=== PATIENT | male | born 2000 | race Caucasian/White ===

== ENCOUNTER 2023-11-14 05:09 | Emergency (ER) | payer BC, SELFPAY ==
[2023-11-14] VITALS (8 sets, daily range): BP systolic 111–140; BP diastolic 70–90; PULSE 50–73; RESP 16–20; TEMP 36.7–37.2; O2SAT 93–100; BMI 35.4
--- NOTE | 2023-11-14 05:25 | CT_ITS ---
FINAL REPORT TECHNIQUE: After the administration of intravenous contrast, axial images were obtained through the abdomen and pelvis by computed tomography. This study was performed with technique to keep radiation doses as low as reasonably achievable, (ALARA). Individualized dose reduction techniques using automated exposure control or adjustment of the MA and/or KV according to the patient's size were employed. CLINICAL HISTORY: RUQ/ R back pain FINDINGS: Abdomen: The lung bases are clear. There is diffuse fatty infiltration of the liver. Spleen is enlarged up to 16 cm in craniocaudad dimension. There are multiple gallstones present. The spleen is unremarkable. The adrenals are normal. The pancreas is unremarkable. The kidneys enhance appropriately. The aorta is normal in caliber. There is no free fluid or adenopathy. Pelvis: The appendix is normal. The urinary bladder is incompletely distended. There is no free fluid or adenopathy. IMPRESSION: Cholelithiasis. Fatty infiltration of the liver with splenomegaly. Reviewed, Interpreted and Dictated by Salazar Benitez MD Transcribed by Obdulia Erwin Authenticated and [facility]
--- NOTE | 2023-11-14 05:26 | ED_ITS ---
Discharge Plan Disposition Patient Disposition: Home, Self-Care Prescriptions Prescriptions: New ondansetron 4 mg tablet,disintegrating 4 mg PO Q8H PRN (Reason: nausea and vomiting) 4 Days Qty: 12 0RF Referrals Follow up/Referrals: Provider,Referral, [Primary Care Provider] - See instructions Activity Restrictions/Add. Instructions Additional Instructions/Restrictions: At this time it was felt you are safe to be discharged home. If new or worsening symptoms please do not hesitate to return the emergency department. Please take your medications as prescribed. For pain please take Tylenol and Profen every 6 hours with little bit of food. Please avoid greasy food as this will cause your gallbladder pain to be worse. Please call and schedule appointment as soon as you are able with Dr. Ya to see if her gallbladder needs to be removed. Clinical Impressions Clinical Impression: Symptomatic cholelithiasis Instructions Patient Instructions: DI for Acute Abdominal Pain Print Language Print Language: Wallisian Discharge ED Provider: Mp Suero General Adult HPI <Anatoliy Ferreira MD - Last Filed: 11/14/23 06:51> General Chief complaint: Abdominal Pain Stated complaint: back, abd pain, vomiting Time Seen by Provider: 11/14/23 05:15 History of Present Illness HPI narrative: 23-year-old male without significant past medical history presents for right- sided abdominal and back pain. He reports symptoms started last few hours. He has had this happen once before but it went away on its own. He reports some nausea and 2 episodes of vomiting. He did not take anything for pain prior to coming besides some Tiffany-Newman. Reports no fever at home, denies surgical history. Reports pain is worse in the lower abdomen currently. Related Data Previous Rx's ?Medication ?Instructions ?Recorded ondansetron 4 mg disintegrating 4 mg PO Q8H PRN nausea and 11/14/23 tablet vomiting 4 days #12 tabs Allergies Allergy/AdvReac Type Severity Reaction Status Date / Time No Known Allergies Allergy Verified 11/14/23 05:28 PFS <Anatoliy Ferreira MD - Last Filed: 11/14/23 06:51> [facility] Disclaimer: The information contained in this section may have been updated after the patient was seen, as this information can be updated by other users. Social History (Updated 11/14/23 @ 06:51 by Anatoliy Ferreira MD) Smoking Status: Current every day smoker alcohol intake: never current occupational status: other Travel in the last 8 weeks: None <Anatoliy Ferreira MD - Last Filed: 11/14/23 06:51> ROS Obtained: Yes All systems reviewed & no additional complaints except as documented Physical Exam <Anatoliy Ferreira MD - Last Filed: 11/14/23 06:51> General General appearance: alert and in no apparent distress Head Head exam: atraumatic and normocephalic Eye Eye exam: Present normal appearance, PERRL and EOMI ENT ENT exam: Present normal oropharynx and normal external ear exam Neck Neck exam: Present normal inspection and full ROM Chest Chest inspection: Present normal inspection and symmetric chest wall rise; Absent tenderness Respiratory Respiratory exam: Present normal lung sounds bilaterally; Absent respiratory distress Cardiovascular Cardiovascular exam: Present regular rate and normal rhythm Abdominal Exam Abdominal exam: Present soft and tenderness (ruq); Absent distention or guarding Extremities Exam Extremities exam: Present normal inspection; Absent edema or joint swelling Back Exam Back exam: Present normal inspection; Absent tenderness Neurological Exam Neurological exam: Present alert and oriented X3; Absent motor sensory deficit Psychiatric Psychiatric exam: Present normal affect and normal mood Skin Skin exam: Present warm, dry and normal color Lymphatic Lymphatic Findings: no adenopathy Medical Decision Making <Anatoliy Ferreira MD - Last Filed: 11/14/23 06:51> Medical Records Medical records reviewed: Yes I reviewed the patient's medical records. Screening: Per USPSTF and CDC recommendations, given the prevalence of disease in our region, it is our hospital?s policy to screen for HIV and viral Hepatitis for all patients aged 18 and over and those with ongoing risk factors. Asif Inquiry Pt receiving controlled substance: No Asif was queried for this patient: No Vital Signs: 11/14/23 05:11 11/14/23 07:00 11/14/23 07:30 Temperature 98.9 F Temperature Source Oral Pulse Rate 50 L 73 Pulse Rate [Left Radial] 67 Respiratory Rate 20 Blood Pressure 140/87 128/75 Blood Pressure [Right Arm] 125/90 Blood Pressure Mean 99 Blood Pressure Mean [Right Arm] 101 Blood Pressure Source [Right Arm] Automatic Cuff Blood Pressure Position [Right Arm] Sitting 02 Sat by Pulse Oximetry 99 93 L 100 Oxygen Delivery Method Room Air Room Air Room Air 11/14/23 08:07 11/14/23 08:31 11/14/23 09:01 Temperature Temperature Source Pulse Rate 60 59 L 51 L Pulse Rate [Left Radial] Respiratory Rate 16 Blood Pressure 129/81 122/80 111/77 Blood Pressure [Right Arm] Blood Pressure Mean 95 Blood Pressure Mean [Right Arm] Blood Pressure Source [Right Arm] Blood Pressure Position [Right Arm] 02 Sat by Pulse Oximetry 98 97 93 L Oxygen Delivery Method Room Air Room Air 11/14/23 09:31 Temperature Temperature Source Pulse Rate 51 L Pulse Rate [Left Radial] Respiratory Rate Blood Pressure 116/70 Blood Pressure [Right Arm] Blood Pressure Mean Blood Pressure Mean [Right Arm] Blood Pressure Source [Right Arm] Blood Pressure Position [Right Arm] 02 Sat by Pulse Oximetry 97 Oxygen Delivery Method Room Air Lab Data Lab results reviewed: Yes I reviewed the patient's lab results. Lab Results 11/14/23 05:20: WBC 11.4 H, RBC 5.16, Hgb 16.3, Hct 48.7, MCV 94.4 H, MCH 31.7 H , MCHC 33.5, RDW 13.8, Plt Count 257, MPV 6.9 L, Neut % (Auto) 79.9, Lymph % (Auto) 14.2, [place] % (Auto) 4.5, Eos % (Auto) 1.0, Baso % (Auto) 0.5, Neut # (Auto) 9.1 H, Lymph # (Auto) 1.6, [place] # (Auto) 0.5, Eos # (Auto) 0.1, Baso # (Auto) 0.1, Sodium 138, Potassium 3.6, Chloride 104, Carbon Dioxide 28, Anion Gap 9.6, BUN 16, Creatinine 0.90, Estimated Creat Clear 197, Estimated GFR 105, Est GFR ( Amer) 127, Glucose 152 H, Calcium 9.0, Total Bilirubin 1.3, AST 48, ALT 85 H, Alkaline Phosphatase 77, Total Protein 7.2, Albumin 4.7, Globulin 2.5, Albumin/Globulin Ratio 1.9 H, Lipase 68 11/14/23 06:15: Urine Color Yellow, Urine Appearance Clear, Urine pH 6.0, Ur Specific [place] >= 1.030, Urine Protein Trace, Urine Glucose (UA) Negative, Urine Ketones Trace, Urine Blood Negative, Urine Nitrate Negative, Urine Bilirubin Negative, Urine Urobilinogen 2.0, Ur Leukocyte Esterase Negative, Urine RBC None, Urine WBC None, Ur Squamous Epith Cells None, Urine Bacteria None 11/14/23 05:20 11/14/23 05:20 Orders (Tests/Meds): ED MEDICATIONS Generic Name Dose Route Start Last Admin Trade Name Freq PRN Reason Stop Dose Admin Sodium Chloride 10 ml 11/14/23 06:06 11/14/23 06:07 Sodium Chloride 0.9% 10ml Syr (Rad Only) IV 12/14/23 06:05 10 ml NEEDED PRN Administration Maintain IV Site Discontinued Medications Generic Name Dose Route Start Last Admin Trade Name Freq PRN Reason Stop Dose Admin Acetaminophen 1,000 mg 11/14/23 05:25 11/14/23 05:30 Acetaminophen 500mg Tab PO 11/14/23 05:26 1,000 mg ONCE ONE Administration Iopamidol 75 ml 11/14/23 06:06 11/14/23 06:07 Iopamidol-370 (76%);100ml Bottle IV 11/14/23 06:07 75 ml ONCE ONE Administration Ketorolac Tromethamine 30 mg 11/14/23 05:25 11/14/23 05:31 Ketorolac 30mg/Ml Vial IV 11/14/23 05:26 30 mg ONCE ONE Administration Ondansetron HCl 4 mg 11/14/23 05:25 11/14/23 05:31 Ondansetron 4mg/2ml Vial IV 11/14/23 05:26 4 mg ONCE ONE Administration ORDERS Category Date Time Status CT abdomen pelvis w con Stat Cat Scan 11/14/23 05:25 Completed POCUS Point of Care (ER Only) Stat Exams 11/14/23 06:14 Completed US RUQ [US abdomen limited] Stat Exams 11/14/23 06:46 Completed CBC w/Auto Diff [Complete Blood Count Auto Diff] Stat Lab 11/14/23 05:20 Completed CMP [Comprehensive Metabolic Panel] Stat Lab 11/14/23 05:20 Completed Lipase Stat Lab 11/14/23 05:20 Completed UA [Urinalysis and Microscopic] Stat Lab 11/14/23 06:15 Completed Medical Decision Narrative: 23-year-old male without significant past medical history presents for right sided abdominal pain and right-sided back pain for few hours.. History was obtained via interactive discussion with patient. On arrival, patient is [afebrile, hemodynamically stable, satting appropriately, alert, oriented x4, GCS 15], moving all extremities spontaneously. Full physical exam performed and significant for right-sided abdominal tenderness. Bedside ultrasound of the right upper quadrant was attempted but was nondiagnostic due to body habitus. Differential includes but is not limited to cholecystitis, UTI, pyelonephritis, kidney stone, pancreatitis, gastroenteritis, musculoskeletal pain. Patient was given Tylenol Toradol Zofran for symptomatic management and correction of underlying abnormalities. Workup initiated including CBC CMP lipase UA CT abdomen and pelvis with IV contrast. On re-evaluation, patient [remains afebrile, HD stable.] Laboratory workup independently interpreted by me and significant for mildly elevated AST, mild leukocytosis, urine without evidence of infection Care handed off to oncoming physician pending CT and right upper quadrant ultrasound results. <Mp Suero MD - Last Filed: 11/14/23 10:04> Vital Signs: 11/14/23 05:11 11/14/23 07:00 11/14/23 07:30 Temperature 98.9 F Temperature Source Oral Pulse Rate 50 L 73 Pulse Rate [Left Radial] 67 Respiratory Rate 20 Blood Pressure 140/87 128/75 Blood Pressure [Right Arm] 125/90 Blood Pressure Mean 99 Blood Pressure Mean [Right Arm] 101 Blood Pressure Source [Right Arm] Automatic Cuff Blood Pressure Position [Right Arm] Sitting 02 Sat by Pulse Oximetry 99 93 L 100 Oxygen Delivery Method Room Air Room Air Room Air 11/14/23 08:07 11/14/23 08:31 11/14/23 09:01 Temperature Temperature Source Pulse Rate 60 59 L 51 L Pulse Rate [Left Radial] Respiratory Rate 16 Blood Pressure 129/81 122/80 111/77 Blood Pressure [Right Arm] Blood Pressure Mean 95 Blood Pressure Mean [Right Arm] Blood Pressure Source [Right Arm] Blood Pressure Position [Right Arm] 02 Sat by Pulse Oximetry 98 97 93 L Oxygen Delivery Method Room Air Room Air 11/14/23 09:31 Temperature Temperature Source Pulse Rate 51 L Pulse Rate [Left Radial] Respiratory Rate Blood Pressure 116/70 Blood Pressure [Right Arm] Blood Pressure Mean Blood Pressure Mean [Right Arm] Blood Pressure Source [Right Arm] Blood Pressure Position [Right Arm] 02 Sat by Pulse Oximetry 97 Oxygen Delivery Method Room Air Lab Data Lab Results 11/14/23 05:20: WBC 11.4 H, RBC 5.16, Hgb 16.3, Hct 48.7, MCV 94.4 H, MCH 31.7 H , MCHC 33.5, RDW 13.8, Plt Count 257, MPV 6.9 L, Neut % (Auto) 79.9, Lymph % (Auto) 14.2, [place] % (Auto) 4.5, Eos % (Auto) 1.0, Baso % (Auto) 0.5, Neut # (Auto) 9.1 H, Lymph # (Auto) 1.6, [place] # (Auto) 0.5, Eos # (Auto) 0.1, Baso # (Auto) 0.1, Sodium 138, Potassium 3.6, Chloride 104, Carbon Dioxide 28, Anion Gap 9.6, BUN 16, Creatinine 0.90, Estimated Creat Clear 197, Estimated GFR 105, Est GFR ( Amer) 127, Glucose 152 H, Calcium 9.0, Total Bilirubin 1.3, AST 48, ALT 85 H, Alkaline Phosphatase 77, Total Protein 7.2, Albumin 4.7, Globulin 2.5, Albumin/Globulin Ratio 1.9 H, Lipase 68 11/14/23 06:15: Urine Color Yellow, Urine Appearance Clear, Urine pH 6.0, Ur Specific [place] >= 1.030, Urine Protein Trace, Urine Glucose (UA) Negative, Urine Ketones Trace, Urine Blood Negative, Urine Nitrate Negative, Urine Bilirubin Negative, Urine Urobilinogen 2.0, Ur Leukocyte Esterase Negative, Urine RBC None, Urine WBC None, Ur Squamous Epith Cells None, Urine Bacteria None Orders (Tests/Meds): ED MEDICATIONS Generic Name Dose Route Start Last Admin Trade Name Freq PRN Reason Stop Dose Admin Sodium Chloride 10 ml 11/14/23 06:06 11/14/23 06:07 Sodium Chloride 0.9% 10ml Syr (Rad Only) IV 12/14/23 06:05 10 ml NEEDED PRN Administration Maintain IV Site Discontinued Medications Generic Name Dose Route Start Last Admin Trade Name Freq PRN Reason Stop Dose Admin Acetaminophen 1,000 mg 11/14/23 05:25 11/14/23 05:30 Acetaminophen 500mg Tab PO 11/14/23 05:26 1,000 mg ONCE ONE Administration Iopamidol 75 ml 11/14/23 06:06 11/14/23 06:07 Iopamidol-370 (76%);100ml Bottle IV 11/14/23 06:07 75 ml ONCE ONE Administration Ketorolac Tromethamine 30 mg 11/14/23 05:25 11/14/23 05:31 Ketorolac 30mg/Ml Vial IV 11/14/23 05:26 30 mg ONCE ONE Administration Ondansetron HCl 4 mg 11/14/23 05:25 11/14/23 05:31 Ondansetron 4mg/2ml Vial IV 11/14/23 05:26 4 mg ONCE ONE Administration ORDERS Category Date Time Status CT abdomen pelvis w con Stat Cat Scan 11/14/23 05:25 Completed POCUS Point of Care (ER Only) Stat Exams 11/14/23 06:14 Completed US RUQ [US abdomen limited] Stat Exams 11/14/23 06:46 Completed CBC w/Auto Diff [Complete Blood Count Auto Diff] Stat Lab 11/14/23 05:20 Completed CMP [Comprehensive Metabolic Panel] Stat Lab 11/14/23 05:20 Completed Lipase Stat Lab 11/14/23 05:20 Completed UA [Urinalysis and Microscopic] Stat Lab 11/14/23 06:15 Completed Medical Decision Narrative: 23-year-old male without significant past medical history presents for right sided abdominal pain and right-sided back pain for few hours.. History was obtained via interactive discussion with patient. On arrival, patient is [afebrile, hemodynamically stable, satting appropriately, alert, oriented x4, GCS 15], moving all extremities spontaneously. Full physical exam performed and significant for right-sided abdominal tenderness. Bedside ultrasound of the right upper quadrant was attempted but was nondiagnostic due to body habitus. Differential includes but is not limited to cholecystitis, UTI, pyelonephritis, kidney stone, pancreatitis, gastroenteritis, musculoskeletal pain. Patient was given Tylenol Toradol Zofran for symptomatic management and correction of underlying abnormalities. Workup initiated including CBC CMP lipase UA CT abdomen and pelvis with IV contrast. On re-evaluation, patient [remains afebrile, HD stable.] Laboratory workup independently interpreted by me and significant for mildly elevated AST, mild leukocytosis, urine without evidence of infection Care handed off to oncoming physician pending CT and right upper quadrant ultrasound results. Mp Suero: Upon assumption of care patient was hemodynamically stable. Workup reviewed by me, hematologic labs are nonactionable, white blood cell count 11.4, no STARR or critical electrolyte abnormality, no elevated lipase or bilirubin. Urinalysis interpreted by me and not consistent with infection. CT imaging informally visualized by me, it appears there are stones in the gallbladder, it is difficult to appreciate whether or not there is thickening or ductal dilatation. Formal read shows cholelithiasis. Ultrasound corroborates this without evidence of thickening to suggest acute cholecystitis. Given this patient has symptomatic cholelithiasis given the quality of his pain as well as location and underwent p.o. trial with successful is appropriate for outpatient management at this time we will follow-up with surgery. Procedures <Anatoliy Ferreira MD - Last Filed: 11/14/23 06:51> Risk/Benefits of Procedure(s) Were Explained: Yes Critical Care <Anatoliy Ferreira MD - Last Filed: 11/14/23 06:51> Critical Care Time Critical Care Time: No
[2023-11-14 05:30] LABS: Basophils # 0.1 K/mm3 (0-0.2); Basophils % 0.5 % (0.1-2.0); Eosinophils # 0.1 K/mm3 (0.0-0.4); Hematocrit 48.7 % (42.0-52.0); Hemoglobin 16.3 g/dL (14.1-18.0); Lymphocytes # 1.6 K/mm3 (0.7-4.5); Lymphocytes % 14.2 % (10-50); Mean Corpuscular HGB Conc 33.5 g/dL (31.8-35.4); Mean Corpuscular Hemoglobin 31.7 pg (27.0-31.2); Mean Corpuscular Volume 94.4 fl (80-94); Mean Platelet Volume 6.9 fl (7.4-10.4); Monocytes # 0.5 K/mm3 (0.1-1.0); Monocytes % 4.5 % (1.7-9.3); Neutrophils # 9.1 K/mm3 (1.8-7.8); Neutrophils % 79.9 % (37.0-80.0); Platelet Count 257 K/mm3 (142-424); Red Blood Count 5.16 M/mm3 (4.60-6.20); Red Cell Distribution Width 13.8 % (11.5-17.5); White Blood Count 11.4 K/mm3 (4.8-10.8)
[2023-11-14] MEDS: ACETAMINOPHEN 500MG TAB 1000 MG PO (05:30)
[2023-11-14] MEDS: ONDANSETRON 4MG/2ML VIAL 4 MG IV (05:31)
[2023-11-14] MEDS: KETOROLAC 30MG/ML VIAL 30 MG IV (05:31)
[2023-11-14 05:36] LABS: Albumin Level 4.7 g/dl (3.5-5.0); Chloride 104 mmol/L (98-107); Potassium 3.6 mmoL/L (3.5-5.1); Sodium 138 mmol/L (136-145)
[2023-11-14 05:38] LABS: Alanine Aminotransferase 85 U/L (12-78); Aspartate Amino Transferase 48 U/L (17-59); Bilirubin,Total 1.3 mg/dl (0.2-1.3); Blood Urea Nitrogen 16 mg/dl (9-20); Creatinine Clearance Estimated 197 mL/min (50-200); Estimated Glomerular Filt Rate 105 ml/min (>60); GFR (African American) 127 ML/MIN (>60)
[2023-11-14 05:39] LABS: Albumin/Globulin Ratio 1.9 (1.1-1.8); Alkaline Phosphatase 77 U/L (38-126); Anion Gap 9.6 mEq/L (5-15); Carbon Dioxide 28 mmol/L (22.0-30.0); Globulin 2.5 g/dL (1.3-3.2); Glucose 152 mg/dl (74-100); Lipase 68 U/L (23-300); Total Protein,Serum 7.2 g/dl (6.3-8.2)
--- NOTE | 2023-11-14 05:49 | PC.NURSE ---
pt to CT at this time
[2023-11-14] MEDS: IOPAMIDOL-370 (76%);100ML BOTTLE 75 ML IV (06:07)
[2023-11-14] MEDS: SODIUM CHLORIDE 0.9% 10ML SYR (RAD ONLY) 10 ML IV (06:07)
--- NOTE | 2023-11-14 06:16 | PC.NURSE ---
urine collected and sent to lab
[2023-11-14 06:18] LABS: Microscopic, Urine URINE MICROSCOPIC (MICROSCOPIC)
[2023-11-14 06:20] LABS: Appearance,Urine CLEAR (Clear); Bilirubin,Urine Negative (Negative); Blood, Urine Negative (Negative); Color,Urine YELLOW (Yellow); Glucose,Urine (UA) Negative (Negative); Ketones,Urine TRACE (Negative); Leukocyte Esterase,Urine Negative (Negative); Nitrate,Urine Negative (Negative); Protein,Urine TRACE (Negative); Specific Gravity, Urine >= 1.030 (1.005-1.030)
--- NOTE | 2023-11-14 06:46 | US_ITS ---
FINAL REPORT CLINICAL HISTORY: R abd pain COMPARISON: None FINDINGS: Sonographic images of the right upper quadrant were obtained. The pancreas is partially obscured. There is fatty infiltration of the liver. There is a multitude of gallstones noted in the gallbladder. There is no significant gallbladder wall thickening. There is no evidence of biliary ductal dilatation.The common duct measures 3 mm. Limited images of the right kidney are unremarkable. IMPRESSION: Multitude of gallstones without gallbladder wall thickening or biliary ductal dilatation. Fatty liver. Reviewed, Interpreted and Dictated by Salazar Benitez MD Transcribed by Roxy Lopez Authenticated and [facility]
--- NOTE | 2023-11-14 07:30 | PC.NURSE ---
Called radiology to check on the status of CT reading of Abd/Pelv performed at 0620, Crystal states she will check with [facility].
--- NOTE | 2023-11-14 07:32 | PC.NURSE ---
PT TO U/S VIA WHEELCHAIR
--- NOTE | 2023-11-14 07:32 | PC.NURSE ---
pt transported to ultrasound
--- NOTE | 2023-11-14 08:03 | PC.NURSE ---
Called radiology again and s/w Crystal regarding the CT A/P, states she pushed the images to [facility] and it is being read now. Dr Suero notified of this
--- NOTE | 2023-11-14 08:05 | PC.NURSE ---
pt returned from US
--- NOTE | 2023-11-14 09:59 | PC.NURSE ---
dr quintero at bedside to update pt
== END 2023-11-14 10:16 | disposition home or self-care (01) ==
PROVIDERS: Emergency Medicine; Emergency Provider Emergency Medicine
DX: K80.80 Other cholelithiasis without obstruction (principal); R10.9 Unspecified abdominal pain; R11.2 Nausea with vomiting, unspecified; M54.9 Dorsalgia, unspecified; F17.200 Nicotine dependence, unspecified, uncomplicated; D72.829 Elevated white blood cell count, unspecified
CPT/HCPCS: 74177; 76705; 80053; 81001; 83690; 85025; 96374; 96375; 99285; J1885; J2405; Q9967